=== PATIENT | female | born 1990 | race Caucasian/White ===

== ENCOUNTER 2018-01-26 21:17 | Emergency (ER) | payer SELFPAY ==
[2018-01-26] MEDS ORDERED: Ibuprofen 800 MG TAB ONE ×2 (21:55→21:57)
--- NOTE | 2018-01-26 22:36 | RAD ---
RADIOGRAPH RIGHT KNEE 4 VIEWS: 01/26/18 at 10:17 p.m. HISTORY: 27-year-old female with traumatic knee pain due to fall. FINDINGS: There is no fracture, dislocation, or any other osseous abnormality. IMPRESSION: Negative. POS: [facility]
== END 2018-01-26 22:42 | disposition home or self-care (01) ==
LOC: ERS 21:17
DX: M25.561 Pain in right knee (principal); R51 Headache; F41.9 Anxiety disorder, unspecified; F32.9 Major depressive disorder, single episode, unspecified; W18.09XA Striking against other object with subsequent fall, initial encounter